=== PATIENT | male | born 1985 | race Caucasian/White ===

== ENCOUNTER 2018-03-24 13:08 | Emergency (ER) | payer SELFPAY ==
[2018-03-24] MEDS: IPRATROPIUM (NEB) 0.5 MG/2.5 ML AMP NEB (13:42)
[2018-03-24] MEDS: ALBUTEROL 0.083% (NEB) 2.5 MG/3 ML AMP NEB (13:42)
[2018-03-24 13:43] LABS: ADD MAN DIFF? NO
[2018-03-24 13:49] LABS: WHITE BLOOD COUNT 13.6 10^3/ul (4.8-10.8)
[2018-03-24 13:49] LABS: BASOPHIL # 0.1 10^3/ul (0.0-0.1); BASOPHILS % 0.8 % (0.0-2.0); EOSINOPHILS # 0.7 10^3/ul (0.0-0.5); EOSINOPHILS % 4.8 % (0.0-7.0); HEMOGLOBIN 17.2 g/dl (14.0-18.0); LYMPHOCYTES # 1.3 10^3/ul (0.8-2.9); LYMPHOCYTES % 9.6 % (15.0-51.0); MEAN CORPUSCULAR HEMOGLOBIN 29.2 pg (29.0-33.0); MEAN CORPUSCULAR HGB CONC 33.7 g/dl (32.0-37.0); MEAN CORPUSCULAR VOLUME 86.6 fl (82.0-101.0); MONOCYTE # 0.8 10^3/ul (0.3-0.9); MONOCYTES % 5.9 % (0.0-11.0); NEUTROPHIL # 10.7 10^3/ul (1.6-7.5); NEUTROPHILS % 78.5 % (39.0-77.0); PLATELET COUNT 326 10^3/UL (140-415); RED BLOOD COUNT 5.89 10^6/ul (4.70-6.10); RED CELL DISTRIBUTION WIDTH 13.2 % (11.5-14.5)
[2018-03-24] MEDS: SOD CHLORIDE 0.9% 1,000 ML IV (13:50)
[2018-03-24] MEDS: LORAZEPAM 2 MG INJ IV (13:50)
[2018-03-24] MEDS: DEXAMETHASONE 10 MG/ML 1 ML INJ IV (13:50)
[2018-03-24] MEDS: MAGNESIUM SULFATE 2 GM/50 ML 50 ML IVPB (13:50)
[2018-03-24 14:06] LABS: ANION GAP 12 (5-13); BLOOD UREA NITROGEN 10 mg/dl (7-20); CARBON DIOXIDE 27 mmol/L (21-31); CHLORIDE 105 mmol/L (97-110); CREATININE 0.74 mg/dl (0.61-1.24); Estimated GFR > 60 mL/min (>60); GLUCOSE 95 mg/dl (70-220); POTASSIUM 5.7 mmol/L (3.5-5.1); SODIUM 144 mmol/L (135-144)
[2018-03-24] MEDS: CEFTRIAXONE 1 GM/50 ML (PMX) 50 ML IVPB (14:32)
[2018-03-24] MEDS: ALBUTEROL 0.083% (NEB) 2.5 MG/3 ML AMP HHN (15:24)
[2018-03-24] MEDS: IPRATROPIUM (NEB) 0.5 MG/2.5 ML AMP HHN (15:24)
== END 2018-03-24 16:01 | disposition home or self-care (01) ==
LOC: FTE 13:08
DX: J45.901 Unspecified asthma with (acute) exacerbation (principal)
CPT/HCPCS: 80048; 85025; 94640; 96365; 96375; 99284-25